=== PATIENT | female | born 1975 | race Caucasian/White ===

== ENCOUNTER 2016-07-06 14:55 | Emergency (ER) | payer OTHER, MEDICAID ==
[~2016-07-06] VITALS: Ht 165.1 cm; Wt 61.2 kg
[~2016-07-06 14:55] MED LIST: ACHD5005 PO; ALPR0.5T PO; AMIT50TA3 PO; BACL20TA PO; BUPR300T PO; GABA800T PO; NAPR-689 PO; ONDA4TAB11 PO; PARO30TA74 PO; PARO40TA47 PO; TRAZ-28; [UNRECOGNIZED DRUG - CODE] PO
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
[2016-07-06 15:30] LABS: RED BLOOD COUNT 5.1 10^6/uL (4.35-5.85); RED CELL DISTRIBUTION WIDTH 15.3 % (10.0-14.5); WHITE BLOOD COUNT 7.4 10^3/uL (4.3-11.0)
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
[2016-07-06] MEDS ORDERED: COLC0.6T53 (15:34)
[2016-07-06] MEDS ORDERED: TRAZ100T92 (15:34)
[2016-07-06] MEDS ORDERED: PANT40TA3 (15:34)
[2016-07-06] MEDS ORDERED: BUPR300T51 (15:34)
[2016-07-06] MEDS ORDERED: PARO20TA5 (15:34)
[2016-07-06] MEDS ORDERED: ARIP10TA17 (15:34)
[2016-07-06] MEDS ORDERED: LORA0.5T (15:34)
[2016-07-06] MEDS ORDERED: CYCL10TA9 (15:34)
[2016-07-06 15:42] LABS: ALANINE AMINOTRANSFERASE 12 U/L (0-55); ALBUMIN 4.3 G/DL (3.2-4.5); ANION GAP 11 MMOL/L (5-14); ASPARTATE AMINO TRANSFERASE 15 U/L (5-34); BILIRUBIN,DIRECT 0.1 MG/DL (0.0-0.3); BILIRUBIN,INDIRECT 0.2 MG/DL; BILIRUBIN,TOTAL 0.3 MG/DL (0.1-1.0); BLOOD UREA NITROGEN 10 MG/DL (7-18); BUN/CREATININE RATIO 11; CALCIUM 9.1 MG/DL (8.5-10.1); CARBON DIOXIDE 21 MMOL/L (21-32); CHLORIDE 106 MMOL/L (98-107); CREATININE SERUM 0.89 MG/DL (0.60-1.30); GFR ESTIMATED > 60; GLUCOSE 140 MG/DL (70-105); POTASSIUM 3.6 MMOL/L (3.6-5.0); SODIUM 138 MMOL/L (135-145); TOTAL PROTEIN 6.9 G/DL (6.4-8.2)
[2016-07-06 15:43] LABS: ALCOHOL < 10 MG/DL (<10)
--- NOTE | 2016-07-06 15:46 | Diagnostic Imaging Report ---
PROCEDURE: CT head and CT cervical spine without contrast. TECHNIQUE: Multiple contiguous axial images were obtained through the brain and cervical spine without the use of intravenous contrast. Sagittal and coronal reformations through the cervical spine were then performed. INDICATION: Left-sided head and neck pain. FINDINGS: CT head: The ventricles and cortical gyral pattern are normal. There is no intracranial hemorrhage or mass effect. No extra-axial fluid collection. Basal cisterns are clear. Mastoid air cells and paranasal sinuses are clear. No calvarial fracture. IMPRESSION: Negative CT head without contrast. CT cervical spine: There is slight loss of normal lordotic curve with degenerative disc disease centered at C5-C6. Mild hypertrophic lipping of the endplates. No significant encroachment is seen upon the central canal or the neural foramen. Facets show good alignment with no significant hypertrophic changes. The atlantoaxial joint is in good alignment. No fractures are demonstrated. The soft tissues appear normal. IMPRESSION: Degenerative cervical disc disease centered at C5-C6. No acute abnormality is noted. Dictated by: Dictated on workstation # [id number]
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
[2016-07-06 16:34] LABS: BILIRUBIN,URINE NEGATIVE (NEGATIVE); KETONES,URINE NEGATIVE (NEGATIVE); LEUKOCYTE ESTERASE ,URINE NEGATIVE (NEGATIVE); NITRITE,URINE NEGATIVE (NEGATIVE); PH,URINE 7 (5-9); PROTEIN,URINE NEGATIVE (NEGATIVE); UROBILINOGEN,URINE NORMAL (NORMAL)
--- NOTE | 2016-07-06 16:48 | Diagnostic Imaging Report ---
INDICATION: Left shoulder pain. EXAMINATION: Left clavicle. COMPARISON: Left shoulder radiographs performed concurrently. TECHNIQUE: Two views of the left clavicle. FINDINGS AND IMPRESSION: The apparent cortical irregularity seen on prior radiographs has a smooth contour on additional views, which indicates this to be a normal osseous contour of the medial clavicle. There is no acute fracture of the left clavicle. Dictated by: Dictated on workstation # [id number]
[2016-07-06] MEDS ORDERED: HYDR-757 PO (17:32)
[2016-07-06 17:40] VITALS: BP 127/86
== END 2016-07-06 17:40 | disposition home or self-care (01) ==
LOC: ER 14:55 → EDUNIT# 14:55 → ER 17:40
DX: S00.03XA Contusion of scalp, initial encounter (principal); S40.012A Contusion of left shoulder, initial encounter; M50.322 Other cervical disc degeneration at C5-C6 level; Z79.899 Other long term (current) drug therapy; V47.5XXA Car driver injured in collision with fixed or stationary object in traffic accident, initial encounter; Y92.410 Unspecified street and highway as the place of occurrence of the external cause; Y99.8 Other external cause status
CPT/HCPCS: 36415; 70450; 71010; 72125; 72170; 73000; 73030; 80048; 80076; 80320; 81000; 84703; 85027; 99285

== ENCOUNTER 2018-05-19 16:53 | Emergency (ER) | payer MEDICAID, OTHER ==
[~2018-05-19] VITALS: Ht 165.1 cm; Wt 68.0 kg
[~2018-05-19 16:53] MED LIST changes: +ARIP10TA17; +BUPR300T51; +COLC0.6T53; +CYCL10TA9; +HYDR-4226 PO; +LORA0.5T; +PANT40TA3; +PARO20TA5; +TRANEXAMIC ACID 100 MG/ML 10 ML INJECTION IV ONE; +TRAZ-189; +TRAZ-190; -TRAZ-28; +fentaNYL INJECTION 100 MCG/2 ML AMP ONE
[2018-05-19] MEDS ORDERED: NS (IVPB) 50 ML ONE (16:55)
[2018-05-19] MEDS ORDERED: MIDAZOLAM 5 MG/5 ML (VERSED) VIAL IJ ONE (16:55)
[2018-05-19] MEDS ORDERED: fentaNYL INJECTION 100 MCG/2 ML AMP INJ ONE (16:55)
[2018-05-19] MEDS ORDERED: NS (IVPB) 250 ML ONE (16:55)
[2018-05-19] MEDS ORDERED: TRANEXAMIC ACID 100 MG/ML 10 ML INJECTION IV ONE (16:55)
[2018-05-19] MEDS ORDERED: CATHETER FLUSH 10 ML SYR IV PRN (17:15)
[2018-05-19] MEDS ORDERED: IOHEXOL 350 MG/ML 100 ML (OMNIPAQUE 350) VIAL IV ONE (17:15)
[2018-05-19] MEDS ORDERED: NS 100 ML (IVPB) BAG IV ONE (17:15)
[2018-05-19] MEDS ORDERED: RECEIVED CONTRAST (Hold Metformin) IV SCH (17:15)
[2018-05-19 17:23] LABS: HEMOGLOBIN 9.7 G/DL (11.5-16.0); MEAN PLATELET VOLUME 10.8 FL (7.4-10.4); RED BLOOD COUNT 3.75 10^6/uL (4.35-5.85); WHITE BLOOD COUNT 11.8 10^3/uL (4.3-11.0)
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
[2018-05-19] MEDS ORDERED: NS IV 1000 ML 1,000 ML IV SCH ×2 (17:30→17:55)
[2018-05-19] MEDS ORDERED: TRANEXAMIC ACID INJECTION 1,000 MG in NS (IVPB) 50 ML IV ONE (17:30)
[2018-05-19] MEDS ORDERED: fentaNYL INJECTION 100 MCG/2 ML AMP IVP ONE ×2 (17:30→17:50)
[2018-05-19] MEDS ORDERED: TRANEXAMIC ACID INJECTION 1,000 MG in NS (IVPB) 250 ML IV SCH (17:30)
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
[2018-05-19 17:40] LABS: FIBRINOGEN 253 MG/DL (221-496); INR 1.2 (0.8-1.4); PARTIAL THROMBOPLASTIN TIME 26 SEC (24-35); PROTHROMBIN TIME PATIENT 15.2 SEC (12.2-14.7)
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
[2018-05-19] MEDS ORDERED: fentaNYL INJECTION 1,250 MCG in NS (IVPB) 250 ML IV SCH (17:45)
[2018-05-19] MEDS ORDERED: MIDAZOLAM INJECTION FOR DRIPS 50 MG in NS (IVPB) 90 ML IV SCH (17:45)
[2018-05-19 17:46] LABS: ALANINE AMINOTRANSFERASE 126 U/L (0-55); ALBUMIN 3.2 GM/DL (3.2-4.5); ALKALINE PHOSPHATASE 54 U/L (40-136); BILIRUBIN,DIRECT 0.1 MG/DL (0.0-0.3); BILIRUBIN,INDIRECT 0.1 MG/DL; BILIRUBIN,TOTAL 0.2 MG/DL (0.1-1.0); BUN/CREATININE RATIO 13; CALCIUM 7.8 MG/DL (8.5-10.1); CARBON DIOXIDE 12 MMOL/L (21-32); CHLORIDE 112 MMOL/L (98-107); CREATININE SERUM 1.02 MG/DL (0.60-1.30); GFR ESTIMATED 59; GLUCOSE 183 MG/DL (70-105); MAGNESIUM 1.8 MG/DL (1.8-2.4); PHOSPHORUS 5.3 MG/DL (2.3-4.7); POTASSIUM 3.4 MMOL/L (3.6-5.0); SODIUM 141 MMOL/L (135-145); TOTAL PROTEIN 5.4 GM/DL (6.4-8.2)
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
[2018-05-19 17:58] LABS: FIBRIN DEGRADATION PRODUCTS > 20.00 UG/ML (0.00-0.49)
--- NOTE | 2018-05-19 18:04 | Diagnostic Imaging Report ---
PROCEDURE: CT chest, abdomen, and pelvis with contrast. TECHNIQUE: Multiple contiguous axial images were obtained through the chest, abdomen, and pelvis after the administration of intravenous contrast. INDICATION: Trauma, abnormal mediastinal enlargement at radiograph. FINDINGS: Chest: There is laceration of the thoracic aorta at about the expected level of the ligamentum arteriosum. This vessel may be completely transected. There is a massive mediastinal hematoma and profound extravasation of contrast through the aortic defect into the mediastinum and left pleural space where there is a very large hemothorax. Mediastinal blood tracks caudally along the esophagus and into the retrocrural upper abdomen. There is, however, no abdominal or pelvic hemoperitoneum. There is a [id number] hemopericardium without pericardial extravasation of contrast. Hematoma encases, narrows, and tapers the main pulmonary arteries bilaterally. I cannot identify pulmonary arterial laceration. Mediastinal hematoma distorts and effaces the posterior wall of the heart as well as encases the cava which is narrowed perhaps owing to shock and hypotension or hematoma mass effect. There is no pneumothorax. Sternum and manubrium are intact. No appreciable rib or chest wall fracture deformity. There is perihilar airspace disease and some dependent atelectatic changes. No findings of pneumatocele or pulmonary laceration. Abdomen and Pelvis: There is irregular appearance of the proximal left renal artery with segmental infarcts in the left kidney likely owing to intimal injury to the left renal artery. The abdominal aorta is patent and intact. The right kidney is perfused. There are scattered liver cysts without an appreciable hepatic tear. There is either linear laceration or more likely cleft in the spleen superiorly. No perisplenic hemorrhage or free fluid along the left colic gutter. No focal mesenteric hematoma. The cava is decompressed likely owing to hypovolemia. No apparent pancreatic laceration. There are fractures of the right sacral ala through the anterior cortex involving the right first and second sacral foramen at the mid sacral level. The fracture extends through the posterior cortex lateral to the S3 foramen. There are comminuted fractures of the left medial pubic bone as well as the right inferior pubic ramus and the right superior ramus adjacent to the anterior column. Articular acetabula are intact. The femoral heads and necks are intact. No dislocation of the hips. Uterus, adnexa, and urinary bladder are unremarkable. There is no pelvic free fluid. On the dynamic images, no obvious defect of the bladder is found; however, delayed images were not performed owing to patient instability. There is at least a small amount of retropubic blood, extraperitoneal along the space of Retzius. IMPRESSION: Chest: Proximal descending aortic laceration with massive mediastinal hematoma and massive active bleeding and extravasation of contrast into the mediastinum and left pleural space Abdomen and pelvis: 1. Likely traumatic intimal injury to the left renal artery with areas of segmental hypoperfusion in the left kidney, presumed infarcts. Probable cleft versus less likely small linear laceration to the spleen at its upper pole. No abdominal or pelvic hemoperitoneum, however. 2. Pelvic fractures with a small amount of extraperitoneal blood in the space of Retzius. No obvious deformity to the bladder; however, delayed images were not performed. 3. Fractures of the pubic rami and sacrum. Critical findings were relayed by phone to the ER physician prior to this dictation. Dictated by: Dictated on workstation # [id number]
[2018-05-19 18:25] VITALS: BP 107/49
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
== END 2018-05-19 18:25 | disposition short-term general hospital (02) ==
LOC: EDUNIT# 16:53 → ER 16:54
DX: S25.09XA Other specified injury of thoracic aorta, initial encounter (principal); S01.81XA Laceration without foreign body of other part of head, initial encounter; R40.2132 Coma scale, eyes open, to sound, at arrival to emergency department; R40.2252 Coma scale, best verbal response, oriented, at arrival to emergency department; R40.2362 Coma scale, best motor response, obeys commands, at arrival to emergency department; F41.9 Anxiety disorder, unspecified; F32.9 Major depressive disorder, single episode, unspecified; V57.5XXA Driver of pick-up truck or van injured in collision with fixed or stationary object in traffic accident, initial encounter
CPT/HCPCS: 31500; 32551; 36430; 51702; 70450; 71045; 71260; 72125; 74177; 80048; 80076; 80320; 83735; 84100; 84484; 84703; 85379; 85384; 85610; 85730; 86850; 86900; 86901; 86920; 93041; 96361; 96365; 96375; 99291; 99292